=== PATIENT | male | born 1990 | race Caucasian/White ===

== ENCOUNTER 2017-06-25 03:29 | Emergency (ER) | payer OTHER ==
[2017-06-25 04:04] VITALS: BP 137/94; PULSE 64; BMI 36.0
--- NOTE | 2017-06-25 04:32 | PDOC ---
History of Present Illness - General Chief Complaint: Weakness Stated Complaint: SOB Time Seen by Provider: 06/25/17 04:32 History Source: Patient - History of Present Illness Initial Comments: 06/25/17 05:24 27-year-old male complaining of fast heart rate, fast breathing and headache at home while laying down. Symptoms disappeared while when he exercised slow breathing. Patient reports similar symptoms in the past that self resolved. Denies stressful activities. patient is currently asymptomatic 06/25/17 05:31 Past History - Past Medical History Allergies/Adverse Reactions: Allergies Allergy/AdvReac Type Severity Reaction Status Date / Time No Known Allergies Allergy Verified 06/25/17 03:56 - Suicide/Smoking/Psychosocial Hx Smoking History: Never smoked Information on smoking cessation initiated: No Hx Alcohol Use: No Drug/Substance Use Hx: No Review of Systems - Review of Systems Able to Perform ROS?: Yes Is the patient limited Stateless proficient: No Constitutional: No: Symptoms Reported, See HPI, Chills, Diaphoresis, Fever, Loss of Appetite, Malaise, Night Sweats, Weakness, Weight Stable, Unintentional Wgt. Loss, Unexplained wgt Loss, Other Cardiac (ROS): Yes: Other (fast heart beating) ABD/GI: No: Symptoms Reported, See HPI, Abdominal Distended, Abd. Pain w/ defecation, Blood Streaked Bowels, Constipated, Diarrhea, Difficulty Swallowing , Nausea, Poor Appetite, Poor Fluid Intake, Rectal Bleeding, Vomiting, Indigestion, Abdominal cramping, Tarry Stools, Other *Physical Exam - Vital Signs Last Vital Signs Temp Pulse Resp BP Pulse Ox 64 14 137/94 100 06/25/17 03:56 06/25/17 03:56 06/25/17 03:56 06/25/17 03:56 - Physical Exam General Appearance: Yes: Appropriately Dressed Respiratory/Chest: positive: Lungs Clear, Normal Breath Sounds Cardiovascular: positive: Regular Rhythm, Regular Rate, S1, S2. negative: Edema , JVD, Murmur, Bradycardia, Tachycardia, Diastolic Murmur, Systolic Murmur, Gallop/S3, Gallop/S4, Irregularly Irregular, Irregular, Other Extremity: positive: Normal Capillary Refill, Normal Inspection Integumentary: positive: Normal Color, Dry, Warm Neurologic: positive: Fully Oriented, Alert, Normal Mood/Affect Heart Score/ECG Review - ECG Intrepretation Rhythm: Regular Rhythm Comment:: 06/25/17 05:40 62: NSR Medical Decision Making - Medical Decision Making 06/25/17 05:35 A: panic attack P: EKG outpatient follow up *DC/Admit/Observation/Transfer Diagnosis at time of Disposition: Anxiety - Discharge Dispostion Disposition: HOME - Referrals Referrals: Chapito Whaley MD [Primary Care Provider] - Call tomorrow - Patient Instructions Printed Discharge Instructions: Anxiety and Panic Attacks (Alternative Therapy) Additional Instructions: follow up with your doctor as soon as possible.
--- NOTE | 2017-06-25 20:06 | EKG ---
Test Reason : Blood Pressure : / mmHG Vent. Rate : 062 BPM Atrial Rate : 062 BPM P-R Int : 136 ms QRS Dur : 086 ms QT Int : 396 ms P-R-T Axes : 027 011 003 degrees QTc Int : 401 ms NORMAL SINUS RHYTHM NORMAL ECG WHEN COMPARED WITH ECG OF 10-MAR-2009 07:21, NO SIGNIFICANT CHANGE WAS FOUND REPEAT EKG IF CLINICALLY INDICATED Confirmed by CHAVA LINK MD ([id number]) on 06/25/2017 8:06:37 PM Referred By: Confirmed By:CHAVA LINK MD
== END 2017-06-25 05:52 | disposition home or self-care (01) ==
LOC: JER 03:29
DX: F41.0 Panic disorder [episodic paroxysmal anxiety] (principal)
CPT/HCPCS: 93005; 93010; 99283-25